=== PATIENT | female | born 1985 | race Caucasian/White ===

== ENCOUNTER 2019-05-25 10:17 | Emergency (ER) | payer BC, MEDICAID ==
[~2019-05-25] VITALS: Ht 152.4 cm; Wt 64.2 kg
[~2019-05-25 10:17] MED LIST: AMOX250S4 PO; DEXA0.5E2 PO; HYDR25TA6 PO; MOTS PO
[2019-05-25 10:21] VITALS: Ht 152.4 cm; Wt 64.2 kg
[2019-05-25] MEDS ORDERED: KETOROLAC 15 MG INJ IV STA (12:04)
[2019-05-25] MEDS ORDERED: ONDANSETRON 4 MG INJ IV STA (12:04)
[2019-05-25] MEDS ORDERED: LIDOCAINE 2% VISC 10 ML CUP PO ONE (12:30)
[2019-05-25] MEDS ORDERED: AL HYDROX/MG HYDROX/SIMETH 30 ML CUP PO ONE (12:30)
[2019-05-25] MEDS ORDERED: PENICILLIN G BENZ 1.2 MIL UNIT SYG IM ONE (14:30)
[2019-05-25 16:10] VITALS: BP 129/103; PULSE 100; RESP 18
== END 2019-05-25 16:42 | disposition home or self-care (01) ==
LOC: E/R 10:17
DX: J02.0 Streptococcal pharyngitis (principal)
CPT/HCPCS: 36415; 76705; 80053; 83690; 84703; 85025; 96372; 96374; 96375; 99285; J0561; J1885; J2405